=== PATIENT | male | born 1975 | race Caucasian/White ===

== ENCOUNTER 2017-05-21 13:25 | Outpatient (CLI) | payer OTHER ==
[2017-05-21] VITALS (13 sets, daily range): BP systolic 100–147; BP diastolic 76–123; PULSE 77–149; TEMP 99.3
[2017-05-21 13:31] LABS: HEMATOCRIT 37.2 % (42.0-52.0); HEMOGLOBIN 12.3 g/dl (13.5-18.0); MEAN CELL VOLUME 97 fl (80.0-100.0); MEAN CORPUSCULAR HEMOGLOBIN 32 pg (27.0-31.0); MEAN CORPUSCULAR HGB CONC 33 g/dl (33.0-37.0); MEAN PLATELET VOLUME 8.9 fl (7.4-10.4); PLATELET COUNT 504 K/mm3 (130-400); RED BLOOD COUNT 3.85 M/mm3 (4.20-5.60); WHITE BLOOD COUNT 11.7 K/mm3 (4.8-10.8)
[2017-05-21 13:35] LABS: INR 1.6 (0.8-3.0); PROTHROMBIN TIME 17.5 SECONDS (9.7-12.8)
[2017-05-21] MEDS ORDERED: ELIQUIS 5MG PO (13:53)
[2017-05-21 13:55] LABS: CREATININE, serum 0.72 mg/dL (0.66-1.25); POTASSIUM 3.9 mmol/L (3.4-5.0)
[2017-05-21] MEDS ORDERED: PRINZIDE 12.5 M1 TAB PO (13:55)
[2017-05-21] MEDS ORDERED: MOTRIN 800800 MG/TAB (13:57)
[2017-05-21] MEDS ORDERED: TYLENOL 500MG500 MG PO (13:58)
[2017-05-21] MEDS ORDERED: GLUCOSAMINE & C1 CA2 (14:00)
[2017-05-21] MEDS ORDERED: POTASSIUM GLUC595 M1 (14:01)
== END 2017-05-21 16:41 | disposition home or self-care (01) ==
LOC: EUO 13:25 → EDSTATUS 13:25 → EUO 16:41
PROVIDERS: Internal Medicine Interventional Cardiology
DX: I36.1 Nonrheumatic tricuspid (valve) insufficiency (principal)
CPT/HCPCS: J0282; J2250; J3010; J7060